=== PATIENT | male | born 1970 ===

== ENCOUNTER 2016-10-04 20:36 | Emergency (ER) | payer SELFPAY ==
[2016-10-04 21:03] VITALS: BP 124/78; PULSE 74; RESP 18; TEMP 98.8; O2SAT 96
[2016-10-04] MEDS ORDERED: Sodium Chloride 0.9% 1,000 ML IV STA (21:39)
--- NOTE | 2016-10-04 21:41 | ED PDOC ---
HPI: General Adult Time Seen by Provider: 10/04/16 21:00 Chief Complaint (Nursing): ENT Problem Chief Complaint (Provider): Left eye/ear pain History Per: Patient History/Exam Limitations: no limitations Onset/Duration Of Symptoms: Days (1) Current Symptoms Are (Timing): Still Present Additional Complaint(s): Jermaine Escobar is a 46 y/o male presenting to the ER on 10/04/2016 with complaints of left eye pain onset last night. Patient reports episode began initially when he developed pain in his left cheek last night. Today when he woke up, he experienced left eye pain as he could not open it this morning. He reports associated headaches as well as left ear pain. He denies any fever, vomiting, or diarrhea. Past Medical History Reviewed: Historical Data, Nursing Documentation, Vital Signs Vital Signs: Last Vital Signs Temp 98.8 F 10/04/16 20:58 Pulse 74 10/04/16 20:58 Resp 18 10/04/16 20:58 BP 124/78 10/04/16 20:58 Pulse Ox 96 10/05/16 00:36 - Medical History PMH: No Chronic Diseases - Surgical History Surgical History: No Surg Hx - Family History Family History: States: Unknown Family Hx - Living Arrangements Living Arrangements: With Family - Social History Current smoker - smoking cessation education provided: No Alcohol: None Drugs: Denies - Home Medications Home Medications: Ambulatory Orders Medication Instructions Recorded Amoxicillin 500 mg PO BID #14 tablet 10/05/16 Ciprofloxacin/Dexamethasone 1 drop BID #1 bottle 10/05/16 [Ciprodex 0.3%-0.1% 7.5 Ml] Tobramycin 0.3% [Tobrex 0.3% Ophth 1 drop OS Q4H #1 bottle 10/05/16 Soln] - Allergies Allergies/Adverse Reactions: Allergies Allergy/AdvReac Type Severity Reaction Status Date / Time No Known Allergies Allergy Verified 10/04/16 21:03 Review of Systems ROS Statement: Except As Marked, All Systems Reviewed And Found Negative Constitutional: Negative for: Fever Eyes: Positive for: Pain ((+) left) ENT: Positive for: Ear Pain ((+) left) Gastrointestinal: Negative for: Vomiting, Diarrhea Neurological: Positive for: Headache Physical Exam - Reviewed Nursing Documentation Reviewed: Yes Vital Signs Reviewed: Yes - Physical Exam Appears: Positive for: Non-toxic, No Acute Distress Head Exam: Positive for: ATRAUMATIC, NORMOCEPHALIC Skin: Positive for: Normal Color. Negative for: Rash Eye Exam: Positive for: EOMI, PERRL, Other ((+) conjuctivitis in left eye ) ENT: Positive for: Normal ENT Inspection (left canal is swollen and narrowed with pus in the middle region. ) Neck: Positive for: Normal, Painless ROM, Supple Cardiovascular/Chest: Positive for: Regular Rate, Rhythm. Negative for: Murmur Respiratory: Positive for: Normal Breath Sounds. Negative for: Wheezing, Respiratory Distress Extremity: Positive for: Normal ROM. Negative for: Deformity, Swelling Neurologic/Psych: Positive for: Alert, Oriented. Negative for: Motor/Sensory Deficits - Laboratory Results Result Diagrams: 10/04/16 22:23 10/04/16 22:23 - ECG O2 Sat by Pulse Oximetry: 96 Medical Decision Making Medical Decision Makin:15 Initial Impression- Conjunctivitis and Left auricular pain (r/o mastoiditis) Initial Plan- * CT Orbits/Facials w/ contrast * CMP * CBC w/ differential * Toradol 30 mg IV * Sodium Chloride 1,000 ml IV * Zofran 4 mg IV 12:22: Cat scan ordered, reviewed and independently interpreted EXAM: CT Temporal Bones With Intravenous Contrast CLINICAL HISTORY: 46 years old, male; Pain; Face pain; Additional info: Tenderness and pain left TECHNIQUE: Axial computed tomography images of the temporal bones with intravenous contrast. This CT exam was performed using one or more of the following dose reduction techniques: automated exposure control, adjustment of the mA and/or kV according to patient size, and/or use of iterative reconstruction technique. Coronal and sagittal reformatted images were created and reviewed. CONTRAST: 90 mL of [id number] administered intravenously. EXAM DATE/TIME: Exam ordered 10/04/2016 11:10 PM COMPARISON: No relevant prior studies available. FINDINGS: Right ossicles and middle ear: Unremarkable. Right cochlea: Unremarkable. Right vestibule: Unremarkable. Right semicircular canals: Unremarkable. Right vestibular and cochlear aqueducts: Unremarkable. Right facial nerve canal: Unremarkable. Right internal auditory canal: Unremarkable. Right external auditory canal: Unremarkable. Right carotid canal: Unremarkable. Right jugular foramen: Unremarkable. Right mastoid air cells: The mastoid air cells are clear. Right temporomandibular joint: Unremarkable. Left ossicles and middle ear: Soft tissue stranding from the inferior left tympanic membrane to the ossicular chain suggesting residua of otitis media. Left cochlea: Unremarkable. Left vestibule: Unremarkable. Left semicircular canals: Unremarkable. Left vestibular and cochlear aqueducts: Unremarkable. Left facial nerve canal: Unremarkable. Left internal auditory canal: Unremarkable. Left external auditory canal: Unremarkable. Left carotid canal: Unremarkable. Left jugular foramen: Unremarkable. Left mastoid air cells: See above. Left temporomandibular joint: Unremarkable. Bones/joints: No acute fracture. Soft tissues: Unremarkable. Sinuses: Bilateral maxillary sinus, sphenoid and inferior frontal/anterior ethmoid mucosal thickening. Dental: Periodontal disease involving tooth #3. Other findings: Congenitally small external auditory canals bilaterally with internal debris, left greater than right. IMPRESSION: 1. 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 2. Soft tissue stranding from the inferior left tympanic membrane to the ossicular chain suggesting minimal residua of otitis media. 3. Bilateral maxillary, sphenoid and inferior frontal/anterior ethmoid sinus disease. 4. Otherwise negative CT temporal bones. No mastoiditis is identified. Documented by Dinora Kimbrough, acting as a scribe for Arsalan Collado MD. All medical record entries made by the Scribe were at my direction and personally dictated by me. I have reviewed the chart and agree that the record accurately reflects my personal performance of the history, physical exam, medical decision making, and the department course for this patient. I have also personally directed, reviewed, and agree with the discharge instructions and disposition. Disposition - Clinical Impression Clinical Impression: Conjunctivitis, Otitis media, Otitis externa - Patient ED Disposition Is Patient to be Admitted: No Counseled Patient/Family Regarding: Studies Performed, Diagnosis, Need For Followup - Disposition Referrals: [facility] [Outside] [facility] [Outside] Disposition: Routine/Home Disposition Time: 23:00 Condition: IMPROVED Additional Instructions: follow up with your primary doctor in 1-2 days return to the ED with any worsening or concerning symptoms. Prescriptions: Amoxicillin 500 mg PO BID #14 tablet Ciprofloxacin/Dexamethasone [Ciprodex 0.3%-0.1% 7.5 Ml] 1 drop BID #1 bottle Tobramycin 0.3% [Tobrex 0.3% Ophth Soln] 1 drop OS Q4H #1 bottle Instructions: Otitis Externa (ED), Otitis Media (ED), Conjunctivitis (ED)
[2016-10-04 22:26] LABS: BASO % 0.6 % (0.0-2.0); EOS # 0.1 K/uL (0.0-0.7); EOS % 1.6 % (0.0-4.0); HEMATOCRIT 43.3 % (35.0-51.0); LYMPH # 2.2 K/uL (1.0-4.3); LYMPH % 29.3 % (20.0-40.0); MEAN CELL VOLUME 89.4 fl (80.0-94.0); MEAN CORPUSCULAR HEMOGLOBIN 30.2 pg (27.0-31.0); MEAN CORPUSCULAR HGB CONC 33.8 g/dL (33.0-37.0); MONO # 0.8 K/uL (0.0-0.8); NEUT # 4.5 K/uL (1.8-7.0); NEUT % 58.5 % (50.0-75.0); RED CELL DISTRIBUTION WIDTH 14.4 % (11.5-14.5); WHITE BLOOD COUNT 7.7 K/uL (4.8-10.8)
[2016-10-04 22:36] LABS: ALB/GLOB RATIO 1.3 (1.0-2.1); ALKALINE PHOSPHATASE 69 U/L (38-126); ALT/SGPT 50 U/L (21-72); AST/SGOT 26 U/L (17-59); BILIRUBIN,TOTAL 0.5 mg/dl (0.2-1.3); BLOOD UREA NITROGEN 13 mg/dl (9-20); CALCIUM 9.2 mg/dL (8.4-10.2); CARBON DIOXIDE 25 mmol/L (22-30); CHLORIDE 102 mmol/L (98-107); GFR AFRICAN-AMERICAN > 60; GLUCOSE,RANDOM 119 mg/dL (75-110); POTASSIUM 4.4 MMOL/L (3.6-5.0); SODIUM 138 mmol/l (132-148); TOTAL PROTEIN 7.6 G/DL (6.3-8.2)
--- NOTE | 2016-10-05 17:43 | CT ---
PROCEDURE: CT scan maxillofacial skeleton dated 10/04/2016 HISTORY: Evaluate temporal bones. Rule out mastoiditis COMPARISON: Correlation made with concurrent CT scan of the temporal bones. TECHNIQUE: Contiguous helical/ transaxial CT images of the maxillofacial bones were obtained following administration of IV contrast. Coronal and sagittal reformats were generated. Intravenous contrast Dose: 90 cc Omnipaque 300 Radiation dose: Total exam DLP = 1094.71 mGy-cm. This CT exam was performed using one or more of the following dose reduction techniques: Automated exposure control, adjustment of the mA and/or kV according to patient size, and/or use of iterative reconstruction technique. FINDINGS: The current study reveals what is felt to represent mild soft tissue swelling periphery about the left external auditory canal. Circumferential soft tissue prominence extends into the left external auditory canal. Findings may represent localized inflammation/infection (non malignant external otitis. . Soft tissue is seen within the lateral aspect left middle ear canal abutting the inferior margin of the left ossicular chain. There is no evidence of destruction of the ossicular chain or drum spur to suggest cholesteatoma. Findings probably represent concomitant otitis media as well. Left mastoid air complexes well-developed and currently well-aerated. The external auditory canals are diminutive in caliber felt to be congenital. . There is a small amount of cerumen within the right external auditory canal. . The right the middle ear canal and contents as well as right mastoid air complex and inner ear structures unremarkable. Note is made of a mucous retention cyst within the left maxillary antrum. Impression: There appears to be mild soft tissue swelling about the peripheral margins of the left external auditory canal with prominent soft tissue in the length of the left external auditory canal likely representing an otitis externa (non malignant external otitis - necrotizing otitis). In addition, there also appears to be mild otitis media. No evidence of left-sided mastoiditis.
--- NOTE | 2016-10-05 17:47 | CT ---
PROCEDURE: CT of the temporal bones dated 10/04/2016 HISTORY: Left-sided pain-tenderness COMPARISON: Correlation made with concurrent CT scan maxillofacial skeleton TECHNIQUE: Following administration of iodinated intravenous contrast, high resolution axial images of the temporal bones were obtained. Coronal and sagittal reformats were generated. Contrast dose: 90 cc Omnipaque 300 Radiation dose: Total exam DLP = 1094.71 mGy-cm. This CT exam was performed using one or more of the following dose reduction techniques: Automated exposure control, adjustment of the mA and/or kV according to patient size, and/or use of iterative reconstruction technique. FINDINGS: The current study reveals what is felt to represent mild soft tissue swelling periphery about the left external auditory canal. Circumferential soft tissue prominence extends into the left external auditory canal. Findings may represent localized inflammation/infection (non malignant external otitis. . Soft tissue is seen within the lateral aspect left middle ear canal abutting the inferior margin of the left ossicular chain. There is no evidence of destruction of the ossicular chain or drum spur to suggest cholesteatoma. Findings probably represent concomitant otitis media as well. Left mastoid air complexes well-developed and currently well-aerated. The external auditory canals are diminutive in caliber felt to be congenital. . There is a small amount of cerumen within the right external auditory canal. . The right the middle ear canal and contents as well as right mastoid air complex and inner ear structures unremarkable. There is mild mucosal thickening both maxillary antra with prominent on occasion tension cyst left maxillary antrum. Minor mucosal thickening within the right maxillary antrum and sphenoid sinus. Mild mucosal thickening in the frontal sinus. Impression: There appears to be mild soft tissue swelling about the peripheral margins of the left external auditory canal with prominent soft tissue in the length of the left external auditory canal likely representing an otitis externa (non malignant external otitis - necrotizing otitis). In addition, there also appears to be mild otitis media. No evidence of left-sided mastoiditis.
== END 2016-10-05 01:08 | disposition home or self-care (01) ==
LOC: H.ER 20:36
DX: H10.9 Unspecified conjunctivitis (principal); H66.92 Otitis media, unspecified, left ear; H60.92 Unspecified otitis externa, left ear
CPT/HCPCS: 70481; 80053; 85025; 99281; J1885; J7040